=== PATIENT | female | born 1995 | race Caucasian/White ===

== ENCOUNTER → 2017-02-02 | Outpatient (CLI) | payer BC ==
[~2017-02-02] MED LIST: AMOX875T2 PO; SULF1TAB35 PO
[2017-02-02 19:09] VITALS: BP 121/85
--- NOTE | 2017-02-02 19:09 | Urgent Care T Sheet Gen (E) ---
Intake General Temperature (Fahrenheit): 98.1 Pulse: 82 Blood Pressure Systolic: 121 Blood Pressure Diastolic: 85 Respirations: 20 SPO2: 99 Chief Complaint: UC Genitourinary Complaint Description of Symptoms 21year old Kelley presents with dull intermittent suprapubic/pelvic pain. States she was recently and just relocated her. She had a mirena place 6 weeks ago and is very concern something is wrong. She has had spotting until a few days ago when it resolved. Denies foul smelling discharge, fever, chills, or malaise. States she was a little nauseated. Denies burning, urgency or frequency with urination. Is in a monogamous relationship and no concern for sti. Source: Patient Exam Limitations: No limitations History of Present Illness Onset & Duration: Days (3) Timing: Still present Severity: Mild Modifying Factors: None Associated Symptoms: Nausea/vomiting (no vomiting) Recent Trauma: No Similar Sympotms Previously: No Allergies: Coded Allergies: No Known Drug Allergies (Unverified , 02/21/16) Home Meds Active Scripts Sulfamethoxazole/Trimethoprim (Bactrim DS)1 Each Tablet1 Tab PO BID Infection # 6 TAB Ref 0 Prov:JG TA Jagdish PARKER 02/02/17 Amoxicillin 875 Mg [id number] Mg PO BID #20 TAB Ref 0 Prov:EZRA SPRINGER APRN () 02/21/16 Respiratory Constitutional Symptoms: No Chills, No Diaphoresis, No Fever, No Malaise, No Weakness, No Other EENTM: No symptoms reported Respiratory: No Short of breath Cardiovascular: No Chest pain, No Edema, No Palpitations Gastrointestinal/Abdominal: Abdominal painNo Constipation, No Diarrhea, No Black stools, NauseaNo Vomiting, RLQ LLQ Genitourinary: No Discharge present, No Dysuria, No Decreased output, No Frequency, No Hematuria, No Pain Control/STD Prophylaxis: IUD (Mirena 6 weeks ago) Musculoskeletal: No Joint pain, No Joint swelling, No Muscle pain, No Muscle stiffness Skin: No Change in hair/nails, No Lesions, No Rash Neurological: No Emotional problems, No Headache, No Numbness, No Tingling, No Weakness Hematologic/Lymphatic: No symptoms reported Immunologic/Allergies: No symptoms reported All Other Systems Reviewed Remaining Systems: All other systems reviewed with negative findings Past Gyvmckf-Tjjrrt-Hpshcu Hx Surgeries/Hospitalizations Hospitalization/Surgery Hx: healthy Physical Exam Physical Exam General Appearance: WD/WN No apparent distress Eyes, Ears, Nose, Throat Ex: PERRL/EOMI Normal ENT inspection Neck Exam: Non tender Supple Respiratory Exam: Chest non-tender Lungs clear Normal breath sounds No respiratory distress No accessory muscles used Cardiovascular Exam: Regular rate, rhythm No edema No gallop No JVD No murmur GI/ Exam: Non tender No organomegaly Normal bowel sounds No distention Back Exam: Normal Inspection No CVA tenderness Skin Exam: Normal color Warm/dry/intact No rashes No embolic lesions Extremity Exam: Non-tender Full range of motion Normal capillary refill No pedal edema Neurologic/Psychiatric Exam: Oriented times 4 CN's II-X nml No motor deficits No sensory deficits Mood/affect nml Comment Pelvic exam was done with Maria M as jumbo operator. Externa genitalia WNL, no lesions, Vaginal tissue WNL, Cervix visualized and no ulcerations or lesions, Mirena string present. Small amount of white discharge noted. No cervical motion tenderness, no adnexal tenderness. Culture obtained. Progress/Orders Lab Results Labs Results: UA UA Lab Results ph 5.0 Specific [place] 1.010 Protein no Glucose (UA) no Ketones no Blood trace Nitrates negative Urobilirubin 0.2 Leukocyte Esterase small Departure Urgent Care Impression Chief Complaint: UC Genitourinary Complaint Impression: Primary Impression: Urinary tract infection Qualified Code: N30.01 - Acute cystitis with hematuria Departure Disposition: HOME OR SELF-CARE Additional Disposition Comment Provided reassurance to Kelley that Mirena string is visible. Will treat her for UTI with Bactrim DS 1 tablet BID x 3 days. Discussed that she may may bacterial overgrowth in the vaginal area and swab was collected but result will not be available until next week. Advised of UTI prevention strategies. Follow up with her new PCP when she returns and have repeat UA to ensure that hematuria has cleared. If fever, chills, worsening pelvic pain, report to Emergency Room. Condition: Stable Scripts Sulfamethoxazole/Trimethoprim (Bactrim DS)1 Each Tablet1 Tab PO BID Infection # 6 TAB Ref 0 Prov:JG TA APRN 02/02/17 End of report . JG TA APRN Feb 02, 2017 19:09
== END ==
LOC: MHUC 17:59
PROVIDERS: ATTEND Nurse Practitioner Family
DX: N30.01 Acute cystitis with hematuria (principal)
CPT/HCPCS: 99213